=== PATIENT | male | born 1935 | race Caucasian/White ===

== ENCOUNTER 2017-04-24 07:33 | Day surgery (SDC) | payer MEDICARE, BC ==
[2017-04-22 10:59] VITALS: BMI 27.8
[~2017-04-24 07:33] MED LIST: DEXAMETHASONE SOD PHOSPHATE 10 MG/ML 1 ML VIAL IV ONE; HEPARIN SODIUM,PORCINE 5,000 UNIT/ML 1 ML VIAL SQ ONE; LIDOCAINE 1% 20 ML VIAL (10MG/ML) FOR IV START INTRADERMA PRN; ONDANSETRON 4 MG/2 ML VIAL IVP ONE; ceFAZolin 2 GM in SODIUM CHLORIDE 0.9% 100 ML IVPB ONE
[2017-04-24] MEDS: LACTATED RINGERS 1,000 ML IV SCH (09:03)
--- NOTE | 2017-04-24 09:30 | P.HPADDEND ---
H&P Addendum H&P Addendum Date: 04/24/17 Patient here today for laparoscopic cholecystectomy. He stopped his eloquis to 3 days ago. No further attacks recently. No change in history or physical from 03/19. Please refer to that history and physical for details.
[2017-04-24] MEDS ORDERED: ROCURONIUM BROMIDE 10 MG/ML 10 ML VIAL IV ONE (09:32)
[2017-04-24] MEDS ORDERED: GLYCOPYRROLATE 0.2 MG/ML 2 ML VIAL ONE (09:32)
[2017-04-24] MEDS ORDERED: ePHEDrine 50 MG/ML 1 ML AMP ONE (09:32)
[2017-04-24] MEDS ORDERED: BUPIVACAINE (PF) 0.25% 30 ML VIAL SQ ONE (09:32)
[2017-04-24] MEDS ORDERED: SUCCINYLCHOLINE CHLORIDE 100 MG/5 ML SYR IV ONE (09:32)
[2017-04-24] MEDS ORDERED: fentaNYL (PF) 50 MCG/ML 2 ML AMP ONE (09:32)
[2017-04-24] MEDS ORDERED: LIDOCAINE 1% INJ 10MG/ML (20 ML MDV) ONE (09:32)
[2017-04-24] MEDS ORDERED: PROPOFOL 10 MG/ML 20 ML VIAL IV ONE (09:32)
[2017-04-24 09:38] LABS: ALT 34 U/L (21-72); AST 34 U/L (17-59); Alkaline Phosphatase 68 U/L (38-126); Anion Gap 9 mmol/L; Blood Urea Nitrogen 25 mg/dL (9-20); Calcium 9.9 mg/dL (8.4-10.2); Carbon Dioxide 28 mmol/L (22-30); Chloride 104 mmol/L (98-107); Glucose 78 mg/dL (74-99); Non-African American GFR(MDRD) >60 (>60 ml/min/1.73 sqM); Potassium 4.3 mmol/L (3.5-5.1); Sodium 141 mmol/L (137-145); Total Bilirubin 0.8 mg/dL (0.2-1.3); Total Protein 7.2 g/dL (6.3-8.2)
[2017-04-24 09:45] LABS: Basophils % (A) 1 %; CH 34.2; CHCM 33.8; Eosinophils # (A) 0.1 k/uL (0-0.7); Eosinophils % (A) 2 %; HCT 45.8 % (39.0-53.0); HDW 2.69; Luc # (Auto) 0.15; Luc % (Auto) 3; Lymphocytes # (A) 0.7 k/uL (1.0-4.8); Lymphocytes % (A) 12 %; MCH 33.4 pg (25.0-35.0); MCHC 32.7 g/dL (31.0-37.0); Macrocytosis Slight; Mean Platelet Volume 7.5; Monocytes # (A) 0.5 k/uL (0-1.0); Monocytes % (A) 9 %; Neutrophils # (A) 4.3 k/uL (1.3-7.7); Neutrophils % (A) 74 %; RBC 4.49 m/uL (4.30-5.90); RDW 14.5 % (11.5-15.5); WBC 5.8 k/uL (3.8-10.6); WBC (Perox) 5.49
[2017-04-24] MEDS ORDERED: LACTATED RINGERS 1,000 ML IV ONE (10:36)
[2017-04-24] MEDS ORDERED: HYDROcodone/APAP 5-325MG 1 EACH TAB PO PRN (11:11)
[2017-04-24] MEDS ORDERED: NALOXONE 0.4 MG/ML 1 ML VIAL IV PRN ×2 (11:11→14:29)
--- NOTE | 2017-04-24 11:16 | P.OP ---
Date of Procedure: 04/24/17 Procedure(s) Performed: PREOPERATIVE DIAGNOSIS: Chronic cholecystitis POSTOPERATIVE DIAGNOSIS: Same with intra-abdominal adhesions PROCEDURE: Laparoscopic cholecystectomy with lysis of adhesions SURGEON: Oscar EBL: Ana Paula see anesthesia record ANESTHESIA: Gen. COMPLICATIONS: None OPERATIVE PROCEDURE: The patient was brought and placed on the operating room table in the supine position. The patient was placed under general anesthesia at that time. The abdomen was prepped and draped in the usual sterile fashion. The patient had a previous midline incision from prior open right colectomy. I entered the abdomen through a optical trocar in the left upper quadrant without difficulty. Full insufflation took place. The patient had a veil of adhesions involving the entire midline and the entire right upper quadrant. An additional 5 mm trocar was placed in the left midabdomen. Blunt dissection and electrocautery including the LigaSure device was utilized to lyse these adhesions. Only one loop of small bowel required mobilization. Only sharp dissection took place around this small bowel loop. Thankfully the gallbladder was free of adhesions. Once I had a large enough window an additional supraumbilical 5 mm trocar and 2 additional 5 mm trochars were placed in the right upper quadrant under direct dilatation as well as a 10 mm trocar in the epigastrium. The gallbladder was retracted superiorly and laterally. The peritoneum overlying the infundibulum was bluntly dissected. The patient's cystic duct was visualized. The junction between the cystic duct common and hepatic duct was identified. The cystic duct was somewhat prominent and was encircled and divided after placement of a 2-0 Ethibond stitch and a 10 mm clip on the patient's side as well as a 10 mm clip on the specimen side. The cystic artery was identified and clipped as well. A small vessel was seen along the gallbladder fossa and clipped as well. The gallbladder was then removed from the liver bed using electrocautery and the LigaSure device. The gallbladder was then removed from the epigastric trocar site with an Endo Catch bag. The gallbladder fossa was irrigated with saline. There was no evidence of any bleeding or biliary drainage seen. The trochars were then removed. The fascia at the 10 millimeter site was closed using a [id number] 0 Vicryl stitch. The skin at all 6 sites was closed using a 4-0 Monocryl stitch. Dermabond was then utilized on the skin. At the end of this procedure the sponge and needle counts were correct. DISPOSITION: Stable to the recovery room
[2017-04-24] MEDS: HYDROmorphone 1 MG/ML 1 ML SYRINGE IVP PRN ×2 (11:36→12:00)
[2017-04-24] MEDS: HEPARIN SODIUM,PORCINE 5,000 UNIT/ML 1 ML VIAL SQ SCH ×2 (18:07→23:13)
[2017-04-24] MEDS: FAMOTIDINE 20 MG TAB PO SCH (20:58)
[2017-04-25] MEDS: LACTATED RINGERS 1,000 ML IV SCH (05:52)
[2017-04-25] MEDS: HEPARIN SODIUM,PORCINE 5,000 UNIT/ML 1 ML VIAL SQ SCH (07:35)
[2017-04-25] MEDS: FAMOTIDINE 20 MG TAB PO SCH (07:35)
--- NOTE | 2017-04-25 10:19 | P.PN ---
Subjective Principal diagnosis: Chronic cholecystitis Patient doing well today. Denies abdominal pain. He is tolerating his diet. Remains pleasantly confused. Cardiology has not seen the patient thus far. Objective - Vital Signs Vital signs: Vital Signs Temp 97.1 F L 04/25/17 07:00 Pulse 50 L 04/25/17 08:00 Resp 12 04/25/17 07:00 BP 160/86 04/25/17 07:00 Pulse Ox 95 04/25/17 07:00 Intake & Output 04/24/17 04/25/17 04/25/17 18:59 06:59 18:59 Intake Total 1100 1190 Output Total 10 600 Balance 1090 590 Weight 92.986 kg Intake: IV 1100 Intake, IV Titration 160 Amount Lactated Ringers 1,000 ml 160 @ 20 mls/hr IV .Q24H PIPPA Rx#:[id number] Oral 550 Other 480 Output: Urine 600 Estimated Blood Loss 10 Other: Voiding Method Toilet Toilet # Voids 3 - Exam Abdomen: Soft, nondistended, minimal tenderness - Labs CBC & Chem 7: 04/24/17 08:48 04/24/17 08:48 Assessment and Plan (1) Chronic cholecystitis Narrative/Plan: Continue diet. Discharged today once cleared by cardiology. Status: Acute
--- NOTE | 2017-04-25 15:17 | P.CRDCN ---
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 fib, hypertension, and dyslipidemia, who was admitted to the hospital and underwent yesterday successful laparoscopic cholecystectomy along with lysis of adhesion. We get involved in the care of the patient because he was found to be bradycardic during and after the surgery. Clinically the patient did not have any symptoms of chest pain or chest discomfort nor shortness of breath nor heart racing or fluttering. He has been up and around and he has been completely asymptomatic. Past Medical History Past Medical History: Atrial Fibrillation, Coronary Artery Disease (CAD), Cancer , CVA/TIA, Hearing Disorder / Deafness, Hyperlipidemia, Hypertension, Memory Impairment, Osteoarthritis (OA), Sleep Apnea/CPAP/BIPAP, Vascular Disorder Additional Past Medical History / Comment(s): hx. anemia, hiatal hernia, shoulder problems-needs replacement, hx. skin cancer, uses CPAP TAKES PO ANTIBIOTICS PRIOR TO DENTAL PROCEDURES R/ HIP REPLACEMENT History of Any Multi-Drug Resistant Organisms: None Reported Past Surgical History: Appendectomy, Bowel Resection, Coronary Bypass/CABG, Heart Catheterization, Joint Replacement, Orthopedic Surgery, Prostate Surgery Additional Past Surgical History / Comment(s): sinus surg., hip ligament surg., left hip replaced, quad. bypass 2008, fem-pop. bypass left leg, stents to improve circulation legs Past Anesthesia/Blood Transfusion Reactions: Previous Problems w/ Anesthesia Additional Past Anesthesia/Blood Transfusion Reaction / Comment(s): slow to wake up from general anes. Past Psychological History: Depression Smoking Status: Former smoker Past Alcohol Use History: None Reported Additional Past Alcohol Use History / Comment(s): smoked pipe for 40 yrs., quit 2001, doesn't drink anymore Past Drug Use History: None Reported - Past Family History Son(s) Family Medical History: Cancer Medications and Allergies Home Medications Medication Instructions Recorded Confirmed Type Apixaban [Eliquis] 5 mg PO BID 04/22/17 04/22/17 History Aspirin 81 mg PO DAILY 04/22/17 04/22/17 History Atorvastatin [Lipitor] 40 mg PO HS 04/22/17 04/22/17 History Cholecalciferol [Vitamin D3] 5,000 unit PO DAILY 04/22/17 04/22/17 History Cilostazol [Pletal] 50 mg PO BID 04/22/17 04/22/17 History Citalopram Hydrobromide [CeleXA] 20 mg PO DAILY 04/22/17 04/22/17 History Cyanocobalamin (Vitamin B-12) 1,000 mcg PO DAILY 04/22/17 04/22/17 History [Vitamin B-12] Ferrous Sulfate [Feosol] 65 mg PO DAILY 04/22/17 04/22/17 History Fish Oil/Dha/Epa [Fish Oil 1,200 1 each PO DAILY 04/22/17 04/22/17 History mg Fish Oil] Folic Acid 400 mcg PO DAILY 04/22/17 04/22/17 History Lisinopril [Zestril] 10 mg PO BID 04/22/17 04/22/17 History Magnesium Gluconate [Magonate] 500 mg PO DAILY 04/22/17 04/22/17 History Memantine HCl [Namenda Xr] 28 mg PO DAILY 04/22/17 04/22/17 History Multivitamin [Men's Multi-Vitamin] 1 each PO DAILY 04/22/17 04/22/17 History Pantoprazole Sodium [Protonix] 40 mg PO HS 04/22/17 04/22/17 History Rivastigmine [Exelon 13.3MG/24Hr 1 patch TRANSDERM Q24HR 04/22/17 04/22/17 History Patch] Sotalol [Betapace] 80 mg PO DAILY 04/22/17 04/22/17 History Allergies Allergy/AdvReac Type Severity Reaction Status Date / Time adhesive tape AdvReac phillips Verified 04/22/17 10:50 skin, blisters Physical Exam Vitals: Vital Signs Temp Pulse Resp BP Pulse Ox 04/25/17 08:00 50 L 04/25/17 07:00 97.1 F L 50 L 12 160/86 95 04/24/17 21:23 98.1 F 60 16 130/72 92 L Intake and Output 04/25/17 04/25/17 04/25/17 06:59 14:59 22:59 Intake Total 640 Balance 640 Intake: Intake, IV Titration 160 Amount Lactated Ringers 1,000 ml 160 @ 20 mls/hr IV .Q24H PIPPA Rx#:[id number] Other 480 Other: Voiding Method Toilet # Voids 3 3 - Constitutional General appearance: no acute distress - Respiratory Respiratory: bilateral: CTA - Cardiovascular Rhythm: regular Heart sounds: normal: S1, S2 Results 04/24/17 08:48 04/24/17 08:48 Current Medications Generic Name Dose Route Start Last Admin Trade Name Zackq PRN Reason Stop Dose Admin Hydrocodone Bitart/Acetaminophen 1 each 04/24/17 11:11 [place] 5-325 PO Q4HR PRN Mild Pain Famotidine 20 mg 04/24/17 21:00 04/25/17 07:35 Pepcid PO 20 mg BID PIPPA Administration Heparin Sodium (Porcine) 5,000 unit 04/24/17 16:00 04/25/17 07:35 Heparin SQ 5,000 unit Q8HR PIPPA Administration Lactated Ringer's 1,000 mls @ 20 mls/hr 04/24/17 05:57 04/25/17 05:52 Lactated Ringers IV Not Given .Q24H PIPPA Lidocaine HCl 0.1 ml 04/24/17 05:57 04/24/17 09:03 .Xylocaine 1% Inj (10mg/Ml) For Iv Start INTRADERMA 0.1 ml PER PROTOCOL PRN Administration IV Start Naloxone HCl 0.2 mg 04/24/17 11:11 Narcan IV Q2M PRN Opioid Reversal Naloxone HCl 0.2 mg 04/24/17 14:29 Narcan IV Q2M PRN Opioid Reversal Intake and Output 04/25/17 04/25/17 04/25/17 06:59 14:59 22:59 Intake Total 640 Balance 640 Intake: Intake, IV Titration 160 Amount Lactated Ringers 1,000 ml 160 @ 20 mls/hr IV .Q24H PIPPA Rx#:[id number] Other 480 Other: Voiding Method Toilet # Voids 3 3 04/24/17 08:48 04/24/17 08:48 Assessment and Plan Plan: This is a pleasant 81-year-old gentleman who was admitted to the hospital and underwent laparoscopic cholecystectomy. He has been maintaining sinus rhythm with sinus bradycardia but he is asymptomatic. From a cardiovascular standpoint of view, the patient can be discharged home. He will follow-up with his steel checker.
[2017-04-25 15:51] VITALS: BP 127/72; PULSE 57; RESP 16; TEMP 98
== END 2017-04-25 17:11 | disposition home or self-care (01) ==
LOC: OR 07:33 → 3SUR 10:57 → OR 04-25 17:11
PROVIDERS: ATTEND Surgery
DX: K81.1 Chronic cholecystitis (principal); K66.0 Peritoneal adhesions (postprocedural) (postinfection); Z90.49 Acquired absence of other specified parts of digestive tract; I48.0 Paroxysmal atrial fibrillation; Z79.01 Long term (current) use of anticoagulants; I25.10 Atherosclerotic heart disease of native coronary artery without angina pectoris; I10 Essential (primary) hypertension; Z87.891 Personal history of nicotine dependence; E78.5 Hyperlipidemia, unspecified; Z95.1 Presence of aortocoronary bypass graft; Z95.820 Peripheral vascular angioplasty status with implants and grafts; K44.9 Diaphragmatic hernia without obstruction or gangrene; Z85.828 Personal history of other malignant neoplasm of skin; F32.9 Major depressive disorder, single episode, unspecified; Z86.73 Personal history of transient ischemic attack (TIA), and cerebral infarction without residual deficits; H91.90 Unspecified hearing loss, unspecified ear; R41.3 Other amnesia; G47.33 Obstructive sleep apnea (adult) (pediatric); Z99.89 Dependence on other enabling machines and devices; M19.019 Primary osteoarthritis, unspecified shoulder; Z79.82 Long term (current) use of aspirin; Z79.899 Other long term (current) drug therapy; Z91.09 Other allergy status, other than to drugs and biological substances
CPT/HCPCS: 93005; 88304; 80053; 85025; 47562; J1644 ×2; J1100; J0690; J2405; J2001; J3010; J1170; J0330; J2704

== ENCOUNTER → 2017-11-09 | Outpatient (CLI) | payer MEDICARE, BC ==
--- NOTE | 2017-11-09 12:01 | XR ---
"Lumbosacral spine HISTORY: Low back pain, wedge deformity 5 views of the lumbosacral spine No comparisons Bone mineralization is reduced. Lumbar vertebral bodies show preserved height. Minimal retrolisthesis grade 1 L4-5, L2-3, L1-2. Sclerosis present in the posterior elements. Loss of disc height present a t multiple levels. No evident spondylolysis. There are dense vascular calcifications present. Surgica l clips present in the right hemiabdomen. There is a metallic stent at the level of the aortic bifurc ation and proximal left common iliac artery. There may be a slight spinal curvature. Suspect dilation of the common iliac artery on the right, iliac stent. IMPRESSION: Degenerative disc disease, facet arthropathy, osteopenia. Peripheral vascular occlusive d isease and postop changes. 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 A Yellow level critical message alert has been initiated for Karuna Land DO via the [employer] | Critical Results System on 11/09/2017 11:58 AM. This message alert has been sent to Karuna granados DO via the preferences provided by the clinician for the receipt of Radiology Critical Findings. Neetu essage ID [id number]."
--- NOTE | 2017-11-09 15:20 | BD ---
EXAMINATION TYPE: MG DEXA axial skeleton. DATE OF EXAM: 11/09/2017 COMPARISON: NONE CLINICAL HISTORY: M85.8 specified disorders of bone density and stru Height: 71 Weight: 206.5 FRAX RISK QUESTIONS: Alcohol (3 or more units per day): no Family History (Parent hip fracture): no Glucocorticoids (More than 3mos): no (Ex: prednisone, prednisolone, methylprednisolone, dexamethasone, and hydrocortisone). History of Fracture in Adulthood: yes Secondary Osteoporosis: 1. Type 1 Diabetes: no 2. Hyperthyroidism: no 4. Malnutrition: no 5. Chronic liver disease: no Rheumatoid Arthritis:no Current Tobacco Use: no RISK FACTORS HISTORY OF: Surgery to Spine/Hip(right/left)/Wrist (right/left): left hip Family History of Osteoporosis: no Active: yes Diet low in dairy products/other sources of calcium: no Lost more than 2 inches in height since high school: no MEDICATIONS: evelon, namenda, eliquis, citalopram, atorvastatin, belapace, lisinopril. pletal Additional History: EXAM MEASUREMENTS: Bone mineral densitometry was performed using the [employer] System. Bone mineral density as measured about the Lumbar spine is: ----- L1-L4(G/cm2): 1.613 T Score Values are as follows: ----- L2: 2.6 ----- L3: 4.3 ----- L4: 3.1 ----- L1-L4: 3.4 Bone mineral density has baseline Bone mineral density about the R hip (g/cm2): 1.268 T Score values are as follows: -----R Neck: 1.7 -----R Total: 2.1 Bone mineral density has baseline IMPRESSION: No evidence for osteoporosis or osteopenia. NOTE: T-SCORE=SD OF THE YOUNG ADULT MEAN.
== END | disposition home or self-care (01) ==
LOC: RADBDWWP 09:37
PROVIDERS: ATTEND Family Medicine
DX: M51.37 Other intervertebral disc degeneration, lumbosacral region (principal); M46.97 Unspecified inflammatory spondylopathy, lumbosacral region; M85.88 Other specified disorders of bone density and structure, other site
CPT/HCPCS: 72110; 77080